=== PATIENT | female | born 1995 | race Caucasian/White ===

== ENCOUNTER 2020-02-07 08:28 | Emergency (ER) | payer BC, OTHER ==
[~2020-02-07] VITALS: Ht 162.6 cm; Wt 81.8 kg
[2020-02-07 09:15] LABS: BILIRUBIN,URINE NEGATIVE (NEGATIVE); CLARITY,URINE CLEAR; COLOR,URINE YELLOW; GLUCOSE, URINE (UA) NEGATIVE (NEGATIVE); KETONES,URINE NEGATIVE (NEGATIVE); LEUKOCYTE ESTERASE ,URINE TRACE (NEGATIVE); NITRITE,URINE NEGATIVE (NEGATIVE); PH,URINE 7.5 (5-9); PROTEIN,URINE NEGATIVE (NEGATIVE)
[2020-02-07 09:25] LABS: BACTERIA,URINE NEGATIVE /HPF; SQUAMOUS EPITHELIAL CELL,UR 0-2 /HPF; WBC,URINE 0-2 /HPF
--- NOTE | 2020-02-07 09:49 | ED GI ---
General Chief Complaint: OB < 20 WEEKS Stated Complaint: VAG BLEEDING,HEMORRHOIDS,8 WEEKS PREG Nursing Triage Note: Pt ambulates to room #6 with c/o vaginal bleeding et rectal bleeding. Pt reports to be approx 8wks (LMP 12/12/19). Reports hx hemorrhoids. Pt reports recent constipation, straining to pass BM's, et "bright red bleeding" after passing bowel movements. LBM 02/07/20. Pt reports upon rise on this day, pt experience x1 episode of approx qauter sized bright red vaginal bleeding. Pt denies vaginal bleeding at this time. Pt reports she was advised by OB Dr. Nguyen to seek evaluation in this ER. A&OX4. Sepsis Screen: No Definite Risk Source of Information: Patient Exam Limitations: No Limitations History of Present Illness Date Seen by Provider: Feb 07, 2020 Time Seen by Provider: 09:20 Initial Comments The patient presents to ER by private conveyance from work with chief complaint of spotting in her underwear. For the past 3-4 days she's had some bleeding from irritated hemorrhoid. She has a history of hemorrhoids and when she started vitamins is made her constipated. She's been using Colace and had a bowel movement today. She's used having a little blood on wiping but when she saw blood in her underwear and she is having some bilateral low pelvic mild cramping she was concerned she came to the ER. She supposed follow with Dr. UNGER and has her first appointment in about 1-2 weeks. She's not had an ultrasound. She is not having any discharge dysuria or dyspareunia. Her last vaginal intercourse was Tuesday, 5 days ago. She has a last missed her period of December 11 putting her at 8 weeks 1 day and she is a G1. Allergies and Home Medications Patient Home Medication List Home Medication List Reviewed: Yes Review of Systems Review of Systems Constitutional: No chills, No fever EENTM: No Blurred Vision, No Double Vision Respiratory: Denies Cough, Denies Shortness of Air Cardiovascular: Denies Chest Pain, Denies Edema Gastrointestinal: See HPI; Denies Abdomen Distended; Abdominal Pain, Constipated; Denies Diarrhea, Denies Nausea Genitourinary: Denies Burning, Denies Discharge Musculoskeletal: No back pain, No gout Skin: No pruritus, No rash Psychiatric/Neurological: Denies Headache, Denies Numbness All Other Systems Reviewed Negative Unless Noted: Yes Past Stlkliq-Herjba-Blorph Hx Patient Social History Alcohol Use: Denies Use Recreational Drug Use: No Smoking Status: Never a Smoker Recent Foreign Travel: No Contact w/Someone Who Travel: No Recent Infectious Disease Expo: No Physical Exam Vital Signs Vital Signs - First Documented 02/07/20 08:55 Temp 37.0 Pulse 89 Resp 18 B/P (MAP) 113/97 (102) Pulse Ox 98 O2 Delivery Room Air Capillary Refill : Less Than 3 Seconds Height/Weight/BMI Height: '" Weight: lbs. oz. kg; 30.00 BMI Method: General Appearance: WD/WN, no apparent distress HEENT: PERRL/EOMI, pharynx normal Neck: full range of motion, normal inspection Respiratory: no respiratory distress, no accessory muscle use Cardiovascular: normal peripheral pulses, regular rate, rhythm Gastrointestinal: normal bowel sounds, non tender, soft Genital/Rectal: normal genital exam, normal vaginal exam (speculum exam with normal-appearing nulliparous cervix without any lacerations, abrasions, discharge or blood in the vaginal vault), other (External rectal exam demonstrates to mildly inflamed hemorrhoids at 5:00 and 6:00 position with the anterior being noon. No large fissure, bleeding. Mildly tender to palpation.) Extremities: normal range of motion, non-tender, normal inspection, normal capillary refill Neurologic/Psychiatric: alert, normal mood/affect, oriented x 3 Progress/Results/Core Measures Results/Orders Lab Results Laboratory Tests Test 02/07/20 08:05 Range/Units Urine Color YELLOW Urine Clarity CLEAR Urine pH 7.5 5-9 Urine Specific [place] <=1.005 1.016-1.022 Urine Protein NEGATIVE NEGATIVE Urine Glucose (UA) NEGATIVE NEGATIVE Urine Ketones NEGATIVE NEGATIVE Urine Nitrite NEGATIVE NEGATIVE Urine Bilirubin NEGATIVE NEGATIVE Urine Urobilinogen 0.2 < = 1.0 MG/DL Urine Leukocyte Esterase TRACE H NEGATIVE Urine RBC (Auto) NEGATIVE NEGATIVE Urine RBC NONE /HPF Urine WBC 0-2 /HPF Urine Squamous Epithelial Cells 0-2 /HPF Urine Crystals NONE /LPF Urine Bacteria NEGATIVE /HPF Urine Casts NONE /LPF Urine Mucus NEGATIVE /LPF Urine Culture Indicated NO My Orders Orders - BRAULIO HA Ua Culture If Indicated (02/07/20 08:47) Urine Bedside (02/07/20 08:47) Hcg,Quantitative (02/07/20 09:43) Vital Signs/I&O 02/07/20 08:55 Temp 37.0 Pulse 89 Resp 18 B/P (MAP) 113/97 (102) Pulse Ox 98 O2 Delivery Room Air Blood Pressure Mean: 102 Progress Progress Note : Time: 09:49 Progress Note Suspect the bleeding is from an hemorrhoids number put her on pramoxine, sits baths, stool softeners and keep her follow-up with Dr. UNGER. Urinalysis unremarkable. Quantitative hCG will be drawn but she does not need to wait for the result. Consults : Consulting Physician: MIRELLA UNGER DO Consults Notes Discussed the case with Dr. UNGER and he agrees with course of care. Departure Impression Primary Impression: Hemorrhoids during in first trimester Disposition: 01 HOME, SELF-CARE Condition: Stable Departure-Patient Inst. Decision time for Depature: 09:44 Referrals: MIRELLA UNGER DO Patient Instructions: Hemorrhoids (DC), How to Do a Sitz Bath Add. Discharge Instructions: Pramoxine foam 1 g every 4 hours as necessary for pain or itching. Sitz baths as necessary for pain. You may continue to take the vitamins as long as you keep your stool soft. Colace 100-200 mg daily MiraLAX 1 capful in a glass of water once or twice a day if you have constipation. Suppositories as necessary. All discharge instructions reviewed with patient and/or family. Voiced understanding. Scripts Pramoxine HCl (Pramoxine HCl) 15 Gm Foam 1 GM TP Q4H PRN for HEMMORRHOID DISCOMFORT, #1 EA 0 Refills Prov: BRAULIO HA 02/07/20 Work/School Note: Work Release Form Date Seen in the Emergency Department: Feb 07, 2020 Return to Work: Feb 07, 2020 Restrictions: No Restrictions BRAULIO HA Feb 07, 2020 09:49
[2020-02-07] MEDS ORDERED: PRAM15FO4 TP (09:52)
[2020-02-07 10:05] VITALS: BP 113/97
== END 2020-02-07 10:05 | disposition home or self-care (01) ==
LOC: ER 08:31
DX: O22.41 Hemorrhoids in pregnancy, first trimester (principal); Z3A.08 8 weeks gestation of pregnancy
CPT/HCPCS: 36415; 81000; 84702; 84703

== ENCOUNTER → 2020-04-22 | Outpatient (CLI) | payer BC ==
[~2020-04-22] MED LIST: PRAM15FO4 TP
--- NOTE | 2020-04-22 12:21 | Diagnostic Imaging Report ---
INDICATION: survey. TECHNIQUE: Multiple real-time grayscale images were obtained over the gravid uterus. COMPARISON: None. FINDINGS: Ferguson viable IUP is in cephalic position. The placenta is posterior. There is no abruption or previa. There is a normal volume of amniotic fluid. Placenta is posterior with the cervical length measuring 3.8 cm. No abruption or previa. There was a normal anatomical survey. IMPRESSION: Ferguson viable IUP with normal survey. No pathological finding identified. Biometrical measurements are as follows: Biparietal 4.33 cm, age 19 weeks 1 days. Head circumference 15.87 cm, age 18 weeks 6 days. Abdominal circumference 13.39 cm, age 19 weeks 0 days. Femur length 2.78 cm, age 18 weeks 4 days. Sonographic estimate age: 19 weeks 0 days. Sonographic estimated date of delivery: 09/16/2020. Estimated Weight: 254 gm (+/- 37 gm). LMP percentile: 54%. heart rate: 136 beats per minute. number: 1 of 1. Dictated by: Dictated on workstation # [id number]
== END ==
LOC: RAD 11:00
PROVIDERS: ATTEND Nurse Practitioner Women's Health
DX: Z34.00 Encounter for supervision of normal first pregnancy, unspecified trimester (principal); Z3A.00 Weeks of gestation of pregnancy not specified
CPT/HCPCS: 76805

== ENCOUNTER 2020-09-13 19:39 | Inpatient (IN) | payer BC ==
[2020-09-13] VITALS (19 sets, daily range): BP systolic 125–172; BP diastolic 76–101
[~2020-09-13] VITALS: Ht 162.6 cm; Wt 106.2 kg
[2020-09-13] MEDS ORDERED: PREN-51 PO (19:46)
[2020-09-13] MEDS ORDERED: FERR-84 PO (19:47)
[2020-09-13 20:09] LABS: BILIRUBIN,URINE NEGATIVE (NEGATIVE); CLARITY,URINE SL CLOUDY; COLOR,URINE ORANGE; GLUCOSE, URINE (UA) NEGATIVE (NEGATIVE); KETONES,URINE NEGATIVE (NEGATIVE); LEUKOCYTE ESTERASE ,URINE 1+ (NEGATIVE); NITRITE,URINE NEGATIVE (NEGATIVE); PH,URINE 6.5 (5-9); PROTEIN,URINE 2+ (NEGATIVE)
[2020-09-13] MEDS ORDERED: D5 LR IV SOLUTION 1,000 ML IV ONE (20:40)
[2020-09-13 20:45] LABS: BACTERIA,URINE TRACE /HPF; RBC,URINE TNTC /HPF; WBC,URINE 25-50 /HPF
[2020-09-13] MEDS ORDERED: MINERAL OIL CONCENTRATE 99.9% 15 ML UDC TOP PRN (20:45)
[2020-09-13] MEDS: D5 LR IV SOLUTION 1,000 ML IV SCH (21:10)
[2020-09-13 21:19] LABS: BASOPHILS % (AUTO) 0 % (0-10); EOSINOPHILS # (AUTO) 0.1 10^3/uL (0.0-0.3); EOSINOPHILS % (AUTO) 1 % (0-10); HEMATOCRIT 38 % (35-52); HEMOGLOBIN 12.7 g/dL (11.5-16.0); LYMPHOCYTES # (AUTO) 2.3 10^3/uL (1.0-4.0); LYMPHOCYTES % (AUTO) 20 % (12-44); MEAN CORPUSCULAR HEMOGLOBIN 31 pg (25-34); MEAN CORPUSCULAR HGB CONC 34 g/dL (32-36); MEAN CORPUSCULAR VOLUME 92 fL (80-99); MEAN PLATELET VOLUME 11.9 fL (9.0-12.2); MONOCYTES # (AUTO) 0.9 10^3/uL (0.0-1.0); MONOCYTES % (AUTO) 7 % (0-12); NEUTROPHILS # (AUTO) 8.3 10^3/uL (1.8-7.8); NEUTROPHILS % (AUTO) 72 % (42-75); PLATELET COUNT 193 10^3/uL (130-400); WHITE BLOOD COUNT 11.6 10^3/uL (4.3-11.0)
[2020-09-13 22:01] LABS: ALBUMIN 3.5 GM/DL (3.2-4.5); CHLORIDE 107 MMOL/L (98-107); POTASSIUM 3.7 MMOL/L (3.6-5.0); SODIUM 140 MMOL/L (135-145)
[2020-09-13 22:02] LABS: CALCIUM 9.1 MG/DL (8.5-10.1)
[2020-09-13 22:04] LABS: GLUCOSE 112 MG/DL (70-105); TOTAL PROTEIN 6.6 GM/DL (6.4-8.2)
[2020-09-13 22:05] LABS: BILIRUBIN,TOTAL 0.1 MG/DL (0.1-1.0); CARBON DIOXIDE 16 MMOL/L (21-32)
[2020-09-13 22:07] LABS: ALKALINE PHOSPHATASE 169 U/L (40-136); CREATININE SERUM 0.77 MG/DL (0.60-1.30); GFR ESTIMATED > 60
[2020-09-13 22:08] LABS: BUN/CREATININE RATIO 13
[2020-09-13 22:10] LABS: ALANINE AMINOTRANSFERASE 14 U/L (0-55); URIC ACID 7.4 MG/DL (2.6-7.2)
[2020-09-13] MEDS ORDERED: MAGNESIUM 4 GM/100 ML IVPB 100 ML IV ONE ×2 (23:00→23:02)
[2020-09-13] MEDS ORDERED: CALCIUM GLUC. 10% 4.65 MEQ/10 ML VIAL IV PRN (23:00)
[2020-09-13] MEDS ORDERED: MAGNESIUM SULFATE DRIP 500 ML IV ONE (23:03)
[2020-09-13] MEDS: MAGNESIUM SULFATE DRIP 500 ML IV SCH (23:42)
[2020-09-14] VITALS (69 sets, daily range): BP systolic 114–175; BP diastolic 64–133
[2020-09-14] MEDS ORDERED: ONDANSETRON 4 MG/2 ML (SDV) Z0FRAN IVP ONE
[2020-09-14] MEDS ORDERED: OXYTOCIN PRE-MIX DRIP 500 ML IV ONE (05:43)
[2020-09-14] MEDS ORDERED: OXYTOCIN PRE-MIX DRIP 500 ML IV SCH (06:00)
[2020-09-14] MEDS ORDERED: fentaNYL 2 mcg/ml BUPIVA 0.125 100 ML ONE (06:06)
--- NOTE | 2020-09-14 06:32 | History & Physical ---
History and Physical Date Seen by Provider: Sep 14, 2020 Time Seen by Provider: 06:25 . This patient is a 25-year-old female patient of Dr. Ruggiero for whom I am covering the patient is at 39 weeks gestation and presented with complaint of rupture membranes. She was grossly ruptured which was confirmed by nitrazine. She is vanita somewhat irregularly. And making slow cervical change. Blood pressures were persistently elevated lab work was obtained and that was consistent with preeclampsia suspicious for developing HELLP syndrome with an elevated lactate dehydrogenase. Blood pressures have been as high as 170s over 100. Patient was started on IV magnesium for seizure prophylaxis. Patient's GBS culture was reportedly negative Initial plan was for observation for spontaneous labor. Patient did demonstrate some cervical change with spontaneous contract and reached the point where she was uncomfortable enough to request an epidural. Patient is allowed the epidural and decision made to proceed with Pitocin augmentation of labor. Allergies are none Medications are vitamins Medical social and surgical history is all per the antepartum record HEENT exam is normal Neck is supple no lymphadenopathy no thyromegaly Abdomen is gravid soft nontender nondistended Extremities show no clubbing or cyanosis. There is no Homans' sign. Pelvic exam as per the nurse report Vital Signs Date Time Temp Pulse Resp B/P (MAP) Pulse Ox O2 Delivery O2 Flow Rate FiO2 09/14/20 02:38 75 18 137/79 (98) 99 Room Air 09/14/20 02:27 36.2 78 18 164/87 (112) 100 Room Air 09/14/20 01:24 86 18 150/82 (104) 100 Room Air 09/14/20 01:05 85 18 145/95 (112) 99 Room Air 09/14/20 00:55 89 18 158/95 (116) 99 Room Air 09/14/20 00:35 85 18 168/94 (118) 98 Room Air 09/14/20 00:20 83 18 146/96 (113) 98 Room Air 09/14/20 00:05 36.7 96 18 145/97 (113) 97 Room Air 09/13/20 23:50 95 18 142/92 (109) 100 Room Air 09/13/20 23:45 93 18 154/93 (113) 99 Room Air 09/13/20 23:40 96 18 144/86 (105) 98 Room Air 09/13/20 23:35 88 18 141/86 (104) 98 Room Air 09/13/20 23:30 84 18 142/85 (104) 99 Room Air 09/13/20 23:25 86 18 147/85 (105) 99 Room Air 09/13/20 23:20 65 18 161/88 (112) 100 Room Air 09/13/20 23:10 35.2 69 18 158/88 (111) 100 Room Air 09/13/20 22:30 64 18 143/80 (101) 98 Room Air 09/13/20 22:00 73 18 135/79 (97) 98 Room Air 09/13/20 21:40 36.0 77 18 146/97 (113) 98 Room Air 09/13/20 21:25 97 18 125/76 (92) 98 Room Air 09/13/20 21:20 36.2 102 18 138/97 (111) 98 Room Air 09/13/20 21:10 102 18 138/97 (111) 98 Room Air 09/13/20 20:55 108 18 172/93 (119) 98 Room Air 09/13/20 20:40 109 18 151/99 (116) 98 Room Air 09/13/20 20:25 109 18 139/101 (114) Room Air 09/13/20 20:10 110 18 137/97 (110) Room Air 09/13/20 19:50 36.7 121 18 98 Room Air 09/13/20 19:50 36.2 121 18 153/98 (116) 97 Room Air I & O 09/14/20 07:00 Intake Total 100 ml Balance 100 ml Vital signs are as noted above and review of the monitor with automatic blood pressure recording blood pressures have intermittently been in the 160s and 170s over 100. Generally and persistently blood pressures have been less than 160 systolic and less than 110 diastolic Assessment and plan 39+ week gestation with spontaneous rupture membranes and with preeclampsia and appears to be developing HELLP syndrome. Patient is on magnesium for seizure prophylaxis and is now being allowed an epidural and we will augment with Pitocin and anticipate a vaginal delivery. Dr. Ruggiero is aware of the pain and plan is for him to assume care after 7 AM today. 39-week gestation with spontaneous rupture membrane/PROM and with severe preeclampsia Allergies and Home Medications Allergies Coded Allergies: No Known Drug Allergies (Unverified , 02/07/20) Patient Home Medication List Home Medication List Reviewed: Yes DIRK GUILLEN MD Sep 14, 2020 06:32
[2020-09-14] MEDS ORDERED: METOCLOPRAMIDE INJ 10 MG/2 ML (REGLAN) IV PRN (07:15)
[2020-09-14] MEDS ORDERED: ONDANSETRON 4 MG/2 ML (SDV) Z0FRAN IV PRN (07:15)
[2020-09-14] MEDS ORDERED: NALOXONE 0.4 MG/ML 1 ML (NARCAN) VIAL IV PRN ×2 (07:15)
[2020-09-14] MEDS ORDERED: LACTATED RINGERS 1,000 ML IV SCH (07:15)
[2020-09-14] MEDS ORDERED: EPIDURAL (fentaNYL 2 MCG/ML BUPIVA 0.125%)100 ML BAG EPI SCH (07:15)
[2020-09-14] MEDS ORDERED: diphenhydrAMINE 50 MG/ML INJ (BENADRYL) IV PRN (07:15)
[2020-09-14] MEDS: MAGNESIUM SULFATE DRIP 500 ML IV SCH ×2 (10:03→20:05)
[2020-09-14] MEDS: D5 LR IV SOLUTION 1,000 ML IV SCH ×2 (10:15→22:09)
[2020-09-14] MEDS ORDERED: LIDOCAINE/EPI 2% 1:200,00 (XYLOCAINE) 20 ML VIAL ONE (12:52)
[2020-09-14] MEDS: OXYTOCIN PRE-MIX DRIP 500 ML IV SCH ×3 (14:19→17:51)
--- NOTE | 2020-09-14 14:31 | OB Labor & Delivery Record ---
L&D History History Expected Date of Delivery: Sep 19, 2020 Gestational Age in Weeks: 39 L&D Stage1 Stage One Onset of Labor - Date: Sep 14, 2020 Monitors and Tracing Monitor Mode: External Heart Rate: 120 Monitor Accelerations: Uniform Monitor Decelerations: None Station: -1 Medical Housekeeper Variability: Average (6-10) Short Term Variability: Present Vital Signs VS - Last 72 Hours, by Label 09/13/20 09/13/20 09/13/20 09/13/20 19:50 19:50 20:10 20:25 Temp 36.2 36.7 Pulse 121 121 110 109 Resp 18 18 18 18 B/P (MAP) 153/98 (116) 137/97 (110) 139/101 (114) Pulse Ox 97 98 O2 Delivery Room Air Room Air Room Air Room Air 09/13/20 09/13/20 09/13/20 09/13/20 20:40 20:55 21:10 21:20 Temp 36.2 Pulse 109 108 102 102 Resp 18 18 18 18 B/P (MAP) 151/99 (116) 172/93 (119) 138/97 (111) 138/97 (111) Pulse Ox 98 98 98 98 O2 Delivery Room Air Room Air Room Air Room Air 09/13/20 09/13/20 09/13/20 09/13/20 21:25 21:40 22:00 22:30 Temp 36.0 Pulse 97 77 73 64 Resp 18 18 18 18 B/P (MAP) 125/76 (92) 146/97 (113) 135/79 (97) 143/80 (101) Pulse Ox 98 98 98 98 O2 Delivery Room Air Room Air Room Air Room Air 09/13/20 09/13/20 09/13/20 09/13/20 23:10 23:20 23:25 23:30 Temp 35.2 Pulse 69 65 86 84 Resp 18 18 18 18 B/P (MAP) 158/88 (111) 161/88 (112) 147/85 (105) 142/85 (104) Pulse Ox 100 100 99 99 O2 Delivery Room Air Room Air Room Air Room Air 09/13/20 09/13/20 09/13/20 09/13/20 23:35 23:40 23:45 23:50 Pulse 88 96 93 95 Resp 18 18 18 18 B/P (MAP) 141/86 (104) 144/86 (105) 154/93 (113) 142/92 (109) Pulse Ox 98 98 99 100 O2 Delivery Room Air Room Air Room Air Room Air 09/14/20 09/14/20 09/14/20 09/14/20 00:05 00:20 00:35 00:55 Temp 36.7 Pulse 96 83 85 89 Resp 18 18 18 18 B/P (MAP) 145/97 (113) 146/96 (113) 168/94 (118) 158/95 (116) Pulse Ox 97 98 98 99 O2 Delivery Room Air Room Air Room Air Room Air 09/14/20 09/14/20 09/14/20 09/14/20 01:05 01:24 02:27 02:38 Temp 36.2 Pulse 85 86 78 75 Resp 18 18 18 18 B/P (MAP) 145/95 (112) 150/82 (104) 164/87 (112) 137/79 (98) Pulse Ox 99 100 100 99 O2 Delivery Room Air Room Air Room Air Room Air 09/14/20 09/14/20 09/14/20 09/14/20 03:20 04:20 05:20 06:00 Temp 36.2 Pulse 75 83 84 89 Resp 18 B/P (MAP) 145/86 (105) 156/95 (115) 135/90 (105) 163/92 (115) Pulse Ox 100 100 99 100 O2 Delivery Room Air Room Air Room Air Room Air 09/14/20 09/14/20 09/14/20 09/14/20 06:15 06:30 06:45 06:55 Temp 35.5 Pulse 89 91 92 100 Resp 18 18 18 18 B/P (MAP) 158/98 (118) 157/95 (115) 150/93 (112) 175/112 (133) Pulse Ox 100 100 100 99 O2 Delivery Room Air Room Air Room Air Room Air 09/14/20 09/14/20 09/14/20 09/14/20 07:00 07:15 07:22 07:30 Temp 36.9 Pulse 90 102 96 90 Resp 18 18 18 18 B/P (MAP) 147/102 (117) 139/80 (99) 117/69 (85) 148/74 (98) Pulse Ox 100 100 100 96 O2 Delivery Room Air Room Air Room Air Room Air 09/14/20 09/14/20 09/14/20 09/14/20 07:32 07:35 07:38 07:40 Pulse 82 82 92 91 Resp 18 18 18 18 B/P (MAP) 133/82 (99) 114/70 (85) 127/75 (92) 128/64 (85) Pulse Ox 96 99 99 100 O2 Delivery Room Air Room Air Room Air Room Air 09/14/20 09/14/20 09/14/20 09/14/20 07:43 07:46 07:50 07:53 Pulse 89 79 82 87 Resp 18 18 18 18 B/P (MAP) 135/76 (95) 139/84 (102) 135/80 (98) 135/83 (100) Pulse Ox 99 99 99 99 O2 Delivery Room Air Room Air Room Air Room Air 09/14/20 09/14/20 09/14/20 09/14/20 07:56 07:59 08:02 08:15 Pulse 85 88 95 84 Resp 18 18 18 18 B/P (MAP) 136/80 (98) 140/81 (100) 135/87 (103) 122/69 (86) Pulse Ox 98 98 98 99 O2 Delivery Room Air Room Air Room Air Room Air 09/14/20 09/14/20 09/14/20 09/14/20 08:30 08:45 09:00 09:15 Pulse 88 86 98 86 Resp 18 18 18 18 B/P (MAP) 118/68 (85) 121/69 (86) 126/76 (93) 129/76 (93) Pulse Ox 99 100 100 100 O2 Delivery Room Air Room Air Room Air Room Air 09/14/20 09/14/20 09/14/20 09/14/20 09:30 09:45 10:00 10:15 Temp 36.1 Pulse 82 82 88 89 Resp 18 18 18 18 B/P (MAP) 134/77 (96) 135/81 (99) 134/82 (99) 136/79 (98) Pulse Ox 99 100 100 100 O2 Delivery Room Air Room Air Room Air Room Air 09/14/20 09/14/20 09/14/20 10:30 10:45 11:00 Pulse 85 89 82 Resp 18 18 18 B/P (MAP) 141/85 (103) 143/89 (107) 145/94 (111) Pulse Ox 94 100 100 O2 Delivery Room Air Room Air Room Air Rupture of Membranes Spontaneous Ruture of Membrane: Yes Amniotic Membrane Rupture Time: 1900 Amniotic Membrane Fluid Desc.: Clear Vaginal Bleeding Description: Normal Show Induction/Anesthesia Epidural Cath Placement - Time: 07 Progress/Notes Patient admitted by my partner Dr. Mendoza last night in early labor and diagnosed with Severe PreE. Started on MgSO4. She was augmented with pitocin when I took over care this AM, she received an epidural and progressed to complete and +1 station. Max dose of 8mu pitocin reached. L&D Stage2 Stage Two Stage II Date: Sep 14, 2020 Monitors and Tracing Monitor Mode: External Heart Rate: 120 Monitor Decelerations: Variable Senior Living Variability: Average (6-10) Position: Right Occiput Anterior Presentation: Vertex Cord Descript/Complications Cord Vessel Description: 3 Vessels Delivery Type Delivery Method: Spontaneous Vaginal Anterior Shoulder: Left Episiotomy/Perineal Laceration Laceraction(s)/Extensions: Yes Episiotomy Description: Right Mediolateral Degree (describe repair) RML repaired using 3-0 and 2-0 vicyrl suture Condition of Infant Delivery 1 minute Comment: 8 5 minute Comment: 9 Notes Live male infant weight 7lbs 7oz Condition of Condition of : Living Exam: No Observed Abnormalities Resuscitation Resuscitation: N/A - Spontaneous Resp L&D Stage3 Stage Three Stage III Date: Sep 14, 2020 Pictocin Pitocin Administration mu/min: 8 Pitocin ml/hr: 8 Pitocin Administration Comment: 30 mu wide open at delivery of placenta Placenta Delivery Placenta Delivery: Spontaneous Delivery Summary Summary Estimated blood loss (mL): 350 Attending at delivery: Mirella Unger DO Condition of Delivery Examined: Cervix Examined, Uterus Explored Post Hemorrhage: No Condition of Mother stable Condition of (s) stable MIRELLA UNGER DO Sep 14, 2020 14:31
[2020-09-14] MEDS ORDERED: MEASLES,MUMPS,RUBELLA 1 EA INJ SQ ONE (14:45)
[2020-09-14] MEDS ORDERED: DIBUCAINE 1% OINTMENT 30 GM TUBE TOP PRN (14:45)
[2020-09-14] MEDS ORDERED: TETANUS,DIPTH,PERTUSS P/F (BOOSTRIX) 0.5 ML VIAL IM ONE (14:45)
[2020-09-14] MEDS ORDERED: HYDROcodone/APAP 5 MG/325 MG (LORTAB) TAB PO PRN (14:45)
[2020-09-14] MEDS: IBUPROFEN 600 MG (MOTRIN) TAB PO SCH ×2 (16:19→22:02)
[2020-09-14] MEDS: WITCH HAZEL(TUCKS) 40 EA JAR TOP PRN (16:54)
[2020-09-14] MEDS: BENZOCAINE/MENTHOL (DERMOPLAST) 56 ML CAN TP PRN (16:55)
[2020-09-14] MEDS: DOCUSATE SODIUM 100 MG (COLACE) CAP PO SCH (20:06)
[2020-09-14] MEDS ORDERED: LABETALOL 200 MG (NORMODYNE) TAB PO ONE (21:15)
[2020-09-14] MEDS ORDERED: CATHETER FLUSH 10 ML SYR IV SCH (22:00)
[2020-09-15] VITALS (8 sets, daily range): BP systolic 109–137; BP diastolic 71–95
[2020-09-15] MEDS: IBUPROFEN 600 MG (MOTRIN) TAB PO SCH ×3 (03:02→17:05)
[2020-09-15] MEDS ORDERED: amLODIPine 2.5MG (NORVASC) TAB PO ONE (03:15)
[2020-09-15 05:44] LABS: BASOPHILS % (AUTO) 0 % (0-10); EOSINOPHILS # (AUTO) 0.1 10^3/uL (0.0-0.3); EOSINOPHILS % (AUTO) 1 % (0-10); HEMATOCRIT 31 % (35-52); LYMPHOCYTES # (AUTO) 2.3 10^3/uL (1.0-4.0); LYMPHOCYTES % (AUTO) 20 % (12-44); MEAN CORPUSCULAR HEMOGLOBIN 31 pg (25-34); MEAN CORPUSCULAR HGB CONC 32 g/dL (32-36); MEAN CORPUSCULAR VOLUME 95 fL (80-99); MEAN PLATELET VOLUME 11.7 fL (9.0-12.2); MONOCYTES # (AUTO) 0.8 10^3/uL (0.0-1.0); MONOCYTES % (AUTO) 7 % (0-12); NEUTROPHILS # (AUTO) 8.2 10^3/uL (1.8-7.8); NEUTROPHILS % (AUTO) 72 % (42-75); PLATELET COUNT 142 10^3/uL (130-400); WHITE BLOOD COUNT 11.4 10^3/uL (4.3-11.0)
[2020-09-15] MEDS ORDERED: amLODIPine 2.5MG (NORVASC) TAB ONE (06:27)
[2020-09-15] MEDS ORDERED: amLODIPine 5 MG (NORVASC) TAB ONE (06:27)
--- NOTE | 2020-09-15 07:02 | Postpartum Progress Note ---
SANJANA NICHOLAS MED STUDENT 09/15/20 0702: Note Note Day # 1 Subjective: Patient is without complaints. Not ambulating yet, receiving MgSO4 for seizure prophylaxis. Ramon in place draining clear yellow urine. Tolerating a regular diet without nausea or vomiting. Normal lochia; passing some clots. Pain is well controlled with oral pain medications. Objective: Physical Exam: General - Alert and oriented, no apparent distress Abdomen - Soft, appropriately tender to palpation, non-distended, fundus firm at umbilicus Extremities - mild edema BLE, negative Bennett's bilaterally Assessment: PPD 1, s/p vaginal delivery complicated by preeclampsia with severe features Recovering well, hemodynamically stable Seizure risk Plan: Routine care. Encourage breast feeding. Encourage ambulation when appropriate Ferrous sulfate supplementation. Continue MgSO4 until 24hr Fall precautions r/t ramon, MgSO4 Plan for discharge today Vitals - Labs Vital Signs - I&O Vital Signs Date Time Temp Pulse Resp B/P (MAP) Pulse Ox O2 Delivery O2 Flow Rate FiO2 09/15/20 03:00 36.5 84 18 124/77 (93) 98 Room Air 09/15/20 02:00 36.4 101 18 135/87 (103) 98 Room Air 09/15/20 01:00 36.2 89 18 130/87 (101) 98 Room Air 09/15/20 00:00 81 18 109/71 (84) 98 Room Air 09/14/20 23:00 36.3 81 18 119/72 (88) 98 Room Air 09/14/20 22:00 36.2 90 18 149/99 (116) 99 Room Air 09/14/20 21:06 86 18 141/90 (107) 98 Room Air 09/14/20 20:00 36.4 87 18 141/91 (108) 99 Room Air 09/14/20 19:00 108 18 129/76 (93) Room Air 09/14/20 18:00 105 18 144/94 (111) Room Air 09/14/20 17:15 36.4 100 18 149/92 (111) 99 Room Air 09/14/20 16:16 99 18 144/90 (108) Room Air 09/14/20 16:01 97 18 145/69 (94) Room Air 09/14/20 15:46 99 18 153/80 (104) Room Air 09/14/20 15:31 110 18 140/91 (107) Room Air 09/14/20 15:16 113 18 152/86 (108) Room Air 09/14/20 15:01 120 18 151/88 (109) Room Air 09/14/20 14:46 141 18 147/88 (107) Room Air 09/14/20 14:31 115 18 168/72 (104) Room Air 09/14/20 14:16 107 18 148/74 (98) Room Air 09/14/20 14:00 166 18 166/133 (144) Room Air 09/14/20 13:30 142 18 150/67 (94) Room Air 09/14/20 13:15 95 18 138/86 (103) Room Air 09/14/20 13:00 96 18 138/78 (98) 100 Room Air 09/14/20 12:30 97 18 136/96 (109) 100 Room Air 09/14/20 12:15 85 18 129/73 (91) 100 Room Air 09/14/20 12:00 91 18 128/83 (98) 100 Room Air 09/14/20 11:45 36.4 82 18 126/80 (95) 100 Room Air 09/14/20 11:30 81 18 147/84 (105) 100 Room Air 09/14/20 11:15 83 18 143/86 (105) 100 Room Air 09/14/20 11:00 82 18 145/94 (111) 100 Room Air 09/14/20 10:45 89 18 143/89 (107) 100 Room Air 09/14/20 10:30 85 18 141/85 (103) 94 Room Air 09/14/20 10:15 36.1 89 18 136/79 (98) 100 Room Air 09/14/20 10:00 88 18 134/82 (99) 100 Room Air 09/14/20 09:45 82 18 135/81 (99) 100 Room Air 09/14/20 09:30 82 18 134/77 (96) 99 Room Air 09/14/20 09:15 86 18 129/76 (93) 100 Room Air 09/14/20 09:00 98 18 126/76 (93) 100 Room Air 09/14/20 08:45 86 18 121/69 (86) 100 Room Air 09/14/20 08:30 88 18 118/68 (85) 99 Room Air 09/14/20 08:15 84 18 122/69 (86) 99 Room Air 09/14/20 08:02 95 18 135/87 (103) 98 Room Air 09/14/20 07:59 88 18 140/81 (100) 98 Room Air 09/14/20 07:56 85 18 136/80 (98) 98 Room Air 09/14/20 07:53 87 18 135/83 (100) 99 Room Air 09/14/20 07:50 82 18 135/80 (98) 99 Room Air 09/14/20 07:46 79 18 139/84 (102) 99 Room Air 09/14/20 07:43 89 18 135/76 (95) 99 Room Air 09/14/20 07:40 91 18 128/64 (85) 100 Room Air 09/14/20 07:38 92 18 127/75 (92) 99 Room Air 09/14/20 07:35 82 18 114/70 (85) 99 Room Air 09/14/20 07:32 82 18 133/82 (99) 96 Room Air 09/14/20 07:30 90 18 148/74 (98) 96 Room Air 09/14/20 07:22 96 18 117/69 (85) 100 Room Air 09/14/20 07:15 36.9 102 18 139/80 (99) 100 Room Air 09/14/20 07:00 90 18 147/102 (117) 100 Room Air I & O 09/15/20 07:00 Intake Total 5372 ml Output Total 5450 ml Balance -78 ml Labs Laboratory Tests 09/15/20 05:16: White Blood Count 11.4H, Red Blood Count 3.27L, Hemoglobin 10.0#L, Hematocrit 31L, Mean Corpuscular Volume 95, Mean Corpuscular Hemoglobin 31, Mean C orpuscular Hemoglobin Concent 32, Red Cell Distribution Width 13.1, Platelet Count 142, Mean Platelet Volume 11.7, Immature Granulocyte % (Auto) 0, Neutrophils (%) (Auto) 72, Lymphocytes (%) (Auto) 20, Monocytes (%) (Auto) 7, Eosinophils (%) (Auto) 1, Basophils (%) (Auto) 0, Neutrophils # (Auto) 8.2H, Lymphocytes # (Auto) 2.3, Monocytes # (Auto) 0.8, Eosinophils # (Auto) 0.1, Basophils # (Auto) 0.0, Immature Granulocyte # (Auto) 0.1 MIRELLA RUGGIERO DO 09/15/20 0713: Note Note Verification and Attestation of Medical Student E/M Service PPD 1 NVD Acute blood loss anemia Severe Preeclampsia- patient stable, s/p MgSO4 infusion 12 hrs pp Peripartum HTN P: Starting on Norvasc 2.5 mg daily today Routine care, will follow for neurosymptoms and BP elevations. A medical student performed and documented this service in my presence. I reviewed and verified all information documented by the medical student and made modifications to such information, when appropriate. I personally performed the physical exam and medical decision making. Mirella Ruggiero, Sep 15, 2020,07:11 SANJANA NICHOLAS MED STUDENT Sep 15, 2020 07:02 MIRELLA RUGGIERO DO Sep 15, 2020 07:13
--- NOTE | 2020-09-15 09:49 | Anesthesia-Regional Post-Op ---
Regional Patient Condition Mental Status: Alert, Oriented x3 Circulation: Same as Pre-Op Headache: Absent Sensation: Full Recovery Motor Block: Absent Post Op Complications Complications None Follow Up Care/Instructions Patient Instructions None needed. Anesthesia/Patient Condition Patient is doing well, no complaints, stable vital signs, no apparent adverse anesthesia problems. No complications reported per nursing. LORI RUIZ CRNA Sep 15, 2020 09:49
[2020-09-15] MEDS: FERROUS SULF 325 MG (IRON) TAB PO SCH (10:03)
[2020-09-15] MEDS: DOCUSATE SODIUM 100 MG (COLACE) CAP PO SCH ×2 (10:03→20:29)
[2020-09-15] MEDS: PRENATAL VITAMIN 1 EA TAB PO SCH (10:14)
[2020-09-16 00:01] VITALS: BP 121/87
[2020-09-16 05:12] VITALS: BP 138/93
[2020-09-16] MEDS: IBUPROFEN 600 MG (MOTRIN) TAB PO SCH ×3 (05:12→13:19)
--- NOTE | 2020-09-16 12:24 | Discharge Inst-Women's Service ---
Discharge Inst-Women's Serv Depart Medication/Instructions New, Converted or Re-Newed RX: RX on Chart Final Diagnosis PPD 2 NVD, Acute blood loss anemia, PreE Problems Reviewed?: Yes Consults/Follow Up Additional Follow Up: Yes Orders/Referrals Dr. Unger in 6 weeks, and in one week for a BP check Activity Activity: Activity as Tolerated Driving Instructions: No Driving for 1 Week NO SMOKING: NO SMOKING Nothing Inside Vagina: No Douching, No Aldie, No Tampons Diet Discharge Diet: No Restrictions Symptoms to Report to : Bleeding Excessive, Pain Increased, Fever Over 101 Degrees F, Vaginal Bleeding Increase, Questions/Concerns For Any Problems or Questions: Contact Your Physician MIRELLA UNGER DO Sep 16, 2020 12:24
[2020-09-16] MEDS ORDERED: DCS100C PO (12:26)
[2020-09-16] MEDS ORDERED: BENZ78AE5 TP (12:26)
[2020-09-16] MEDS ORDERED: IBUP-844 PO (12:26)
[2020-09-16] MEDS ORDERED: ACHD5005 PO (12:26)
[2020-09-16] MEDS ORDERED: AMLO2.5T2 PO (12:27)
[2020-09-16] MEDS: FERROUS SULF 325 MG (IRON) TAB PO SCH (13:19)
[2020-09-16] MEDS: PRENATAL VITAMIN 1 EA TAB PO SCH (13:19)
[2020-09-16] MEDS: DOCUSATE SODIUM 100 MG (COLACE) CAP PO SCH (13:19)
[2020-09-16] MEDS: WITCH HAZEL(TUCKS) 40 EA JAR TOP PRN (13:19)
[2020-09-16] MEDS: BENZOCAINE/MENTHOL (DERMOPLAST) 56 ML CAN TP PRN (13:20)
[2020-09-16 13:48] VITALS: BP 131/79
== END 2020-09-16 14:40 | disposition home or self-care (01) | DRG 806 ==
LOC: WSo 19:39 → LDRP 19:39 → WSo 20:11 → LDRP 09-14 17:00
PROVIDERS: ADMIT Obstetrics & Gynecology; ATTEND Obstetrics & Gynecology
PROC: 10E0XZZ Delivery of Products of Conception, External Approach (ICD-10-PCS; principal; 2020-09-14)
PROC: 0W8NXZZ Division of Female Perineum, External Approach (ICD-10-PCS; 2020-09-14)
DX: O14.14 Severe pre-eclampsia complicating childbirth (principal); D62 Acute posthemorrhagic anemia; Z37.0 Single live birth; Z3A.39 39 weeks gestation of pregnancy; O90.81 Anemia of the puerperium; O16.5 Unspecified maternal hypertension, complicating the puerperium
CPT/HCPCS: 36415; 80053; 81000; 82570; 83615; 84156; 84550; 85025; 86850; 86900; 86901; 87088; 99212

== ENCOUNTER 2021-12-31 10:50 | Emergency (ER) | payer BC ==
[~2021-12-31] VITALS: Ht 162.6 cm; Wt 85.2 kg
[~2021-12-31 10:50] MED LIST changes: +ACHD5005 PO; +AMLO2.5T2 PO; +BENZ78AE5 TP; +DOCU-239 PO; +FERR-84 PO; +IBUP-844 PO; +PREN-51 PO
--- NOTE | 2021-12-31 11:29 | ED GU-Female ---
General Chief Complaint: Rect Problems Stated Complaint: HEMORRHOIDS Source: patient History of Present Illness Date Seen by Provider: Dec 31, 2021 Time Seen by Provider: 10:56 Initial Comments 26-year-old female presenting with complaints of sudden rectal pain. She is G2, P1 at approximately 15 weeks estimated gestational age. She states that she had urged her to have a bowel movement and did not feel like she was straining very hard but had a sudden popping sensation. Then she had severe pain and when she looked in the mirror she had a bright red object sticking out of her rectum. She does have a history of hemorrhoids even before her prior . She has not had something like this happen before. She was not having any bleeding. She denies having any vaginal bleeding or fluid draining. She has had no pain with urination. Timing/Duration: just prior to arrival Severity/Quality: severe, sharp Location: other (Rectal) Radiation: none Activities at Onset: other (Trying to defecate) Prior Genitourinary Problems: none Sexual [place] History: less than 2 months ago Modifying Factors: Worsens With Defecating, Worsens With Movement Associated Symptoms: No abdominal pain, No diaphoresis, No dysuria, No fever/chills, No loss of bladder control, No lower back pain, No lumps, No mass, No nausea/vomiting, No nocturia, No polyuria, No swelling, No syncope, No urinary frequency Allergies and Home Medications Allergies Coded Allergies: No Known Drug Allergies (Unverified , 02/07/20) Patient Home Medication List Home Medication List Reviewed: Yes Amlodipine Besylate (Norvasc) 2.5 Mg Tablet, 2.5 MG PO DAILY Prescribed by: MIRELLA UNGER on 09/16/20 1227 Benzocaine/Menthol (Dermoplast Pain Relieving [place]) 78 Gm Aerosol, 0 EA TP UD PRN for PAIN- SEE INSTRUCTIONS Prescribed by: MIRELLA UNGER on 09/16/20 1226 Docusate Sodium (Dok) 100 Mg Capsule, 100 MG PO BID PRN for CONSTIPATION-1ST LINE Prescribed by: MIRELLA UNGER on 09/16/20 1226 Ferrous Sulfate (Iron) 325 Mg Tablet, 325 MG PO, (Reported) Entered as Reported by: TAMIE HENSON on 09/13/201946 Hydrocodone Bit/Acetaminophen (HYDROcodone/APAP 5 MG/325 MG TAB) 1 Tab Tab, 1 EA PO Q4H PRN for PAIN-MODERATE (5-7) Prescribed by: MIRELLA UNGER on 09/16/20 1226 Ibuprofen (Ibu) 600 Mg Tablet, 600 MG PO Q6H Prescribed by: MIRELLA UNGER on 09/16/20 1226 Vit #76/Iron,Carb/FA (Prenatabs Rx Tablet) 1 Each Tablet, 1 EACH PO, (Reported) Entered as Reported by: TAMIE HENSON on 09/13/20 194 Review of Systems Review of Systems Constitutional: No chills, No fever EENTM: no symptoms reported Respiratory: no symptoms reported Cardiovascular: no symptoms reported Gastrointestinal: no symptoms reported Genitourinary: see HPI Musculoskeletal: no symptoms reported Skin: no symptoms reported Psychiatric/Neurological: No Symptoms Reported Past Yriatrf-Ajyupn-Gxkbqj Hx Patient Social History Tobacco Use?: No Smoking Status: Never a Smoker Smokeless Tobacco Frequency: Never a User Use of E-Cig and/or Vaping dev: No Use of E-Cig and/or Vaping Praneeth: Never a User Substance use?: No Alcohol Use?: No Pt feels they are or have been: No Seasonal Allergies Seasonal Allergies: No Past Medical History Surgery/Hospitalization HX: Hemorrhoids Surgeries: No Respiratory: No Cardiac: No Neurological: No Genitourinary: No Gastrointestinal: Yes Hemorrhoids Musculoskeletal: No Endocrine: No HEENT: No Cancer: No Psychosocial: No Integumentary: No Blood Disorders: No Physical Exam Vital Signs Vital Signs - First Documented 12/31/21 12/31/21 10:55 11:35 Temp 36.8 Pulse 87 Resp 20 B/P (MAP) 134/89 (104) Pulse Ox 100 O2 Delivery Room Air Capillary Refill : Height, Weight, BMI Height: '" Weight: lbs. oz. kg; 40.16 BMI Method: General Appearance: moderate distress HEENT: PERRL/EOMI Cardiovascular: normal peripheral pulses Rectal: normal rectal tone, hemorrhoids (Small external hemorrhoids and a larger internal hemorrhoid that appeared to be prolapsed. With using lubricant and gentle pressure this was easily reduced. Pain immediately was improved.) Extremities: normal range of motion, non-tender, normal capillary refill Neurologic/Psychiatric: alert, oriented x 3 Skin: warm/dry Progress/Results/Core Measures Suspected Sepsis SIRS Temperature: Pulse: Respiratory Rate: Blood Pressure / Mean: Results/Orders Vital Signs/I&O 12/31/21 12/31/21 10:55 11:35 Temp 36.8 36.7 Pulse 87 78 Resp 20 17 B/P (MAP) 134/89 (104) 127/66 Pulse Ox 100 O2 Delivery Room Air Room Air Capillary Refill : Progress Note : Progress Note Prolapsed internal hemorrhoid was easily reduced on digital rectal exam during physical exam. She had immediate improvement in her pain. Counseled on high- fiber diet and increase fluids to help keep stools soft and regular. Consider MiraLAX to help keep stools soft and regular. Follow-up with her high school counselor and she may need to have surgery to have her hemorrhoids removed if they continue to give her problems. Departure Impression Primary Impression: Prolapsed internal hemorrhoids requiring manual reduction Additional Impression: Incidental Disposition: 01 HOME, SELF-CARE Condition: Improved Departure-Patient Inst. Decision time for Depature: 11:27 Referrals: MIRELLA UNGER DO (PCP) Primary Care Physician Patient Instructions: Hemorrhoids ED, High Fiber Diet Add. Discharge Instructions: Stay well-hydrated and drink plenty of water and electrolyte drinks. Try to follow a high-fiber diet to help keep your stools soft and regular. Consider MiraLAX or a laxative if needed to keep your stools soft and regular. Follow-up with your security guards dispatcher about the hemorrhoids and if they continue to be a problem you may even need to consider having surgery to have the hemorrhoids removed. It would be safe to use acetaminophen or Tylenol up to 1000 mg 3-4 times a day if needed for pain. You could use kegv-[id number] Preparation H or witch toni products to help with hemorrhoids and rectal pain. All discharge instructions reviewed with patient and/or family. Voiced understanding. JEAN PIERRE RODRIGUEZ MD Dec 31, 2021 11:29
[2021-12-31 11:35] VITALS: BP 127/66
== END 2021-12-31 11:35 | disposition home or self-care (01) ==
LOC: EDUNIT# 10:50 → ER FS 10:51
DX: O22.42 Hemorrhoids in pregnancy, second trimester (principal); Z3A.15 15 weeks gestation of pregnancy; Z28.310 Unvaccinated for COVID-19
CPT/HCPCS: 99284

== ENCOUNTER → 2022-02-03 | Outpatient (CLI) | payer BC ==
--- NOTE | 2022-02-03 16:27 | Diagnostic Imaging Report ---
INDICATION: Anatomic survey, patient. TECHNIQUE: Multiple real-time grayscale images were obtained over the gravid uterus. COMPARISON: None during this . FINDINGS: Single live intrauterine fetus is seen measuring 19 weeks 2 days by composite measurements with sonographic EDC of 06/28/2022. The fetus is in variable presentation. Placenta was posterior and fundal with no evidence of previa. The distance from the placental tip to the internal os was 6.6 cm. Cervical length is 6.9 cm. The amniotic Fluid index was 16.39 cm. heart rate is 142 BPM. There is no evidence of abruption. Maternal adnexa show no free fluid. survey showed normal-appearing kidneys and bladder. Normal-appearing stomach was seen. Intracranial ventricles were normal. Four-chamber heart view appeared normal. The views of the spine appeared normal. Three-vessel cord and cord insertion were unremarkable. Biometrical measurements are as follows: Biparietal 4.38 cm, age 19 weeks 2 days. Head circumference 16.47 cm, age 19 weeks 2 days. Abdominal circumference 14.34 cm, age 19 weeks 5 days. Femur length 2.78 cm, age 18 weeks 4 days. Sonographic estimate age: 19 weeks 2 days. Sonographic estimated date of delivery: 06/28/2022. Estimated Weight: 276 gm (+/- 41 gm). LMP percentile: 17%. heart rate: 142 beats per minute. number: 1 of 1. IMPRESSION: Single live intrauterine fetus measuring 19 weeks 2 days in size. There were no detectable sonographic abnormalities. Dictated by: Dictated on workstation # [id number]
== END ==
LOC: RAD 14:53
PROVIDERS: ATTEND Nurse Practitioner Women's Health
DX: Z34.02 Encounter for supervision of normal first pregnancy, second trimester (principal); Z3A.19 19 weeks gestation of pregnancy
CPT/HCPCS: 76805

== ENCOUNTER 2022-06-24 06:21 | Inpatient (IN) | payer BC ==
[~2022-06-24] VITALS: Ht 162.6 cm; Wt 99.7 kg
[2022-06-24] VITALS (56 sets, daily range): BP systolic 98–145; BP diastolic 50–83
[2022-06-24 08:02] LABS: BASOPHILS % (AUTO) 0 % (0-10); EOSINOPHILS % (AUTO) 0 % (0-10); HEMATOCRIT 30 % (35-52); HEMOGLOBIN 9.9 g/dL (11.5-16.0); LYMPHOCYTES # (AUTO) 0.6 10^3/uL (1.0-4.0); LYMPHOCYTES % (AUTO) 7 % (12-44); MEAN CORPUSCULAR HEMOGLOBIN 29 pg (25-34); MEAN CORPUSCULAR HGB CONC 33 g/dL (32-36); MEAN CORPUSCULAR VOLUME 86 fL (80-99); MONOCYTES # (AUTO) 0.6 10^3/uL (0.0-1.0); MONOCYTES % (AUTO) 7 % (0-12); NEUTROPHILS # (AUTO) 6.8 10^3/uL (1.8-7.8); NEUTROPHILS % (AUTO) 85 % (42-75); PLATELET COUNT 161 10^3/uL (130-400)
[2022-06-24] MEDS: D5 LR IV SOLUTION 1,000 ML IV SCH ×2 (08:17→16:20)
[2022-06-24 08:46] LABS: BAND NEUTROPHILS 2 %; BASOPHILS % (MANUAL) 0 %; EOSINOPHILS % (MANUAL) 1 %; LYMPHOCYTES % (MANUAL) 10 %; MONOCYTES % (MANUAL) 3 %; NEUTROPHILS % (MANUAL) 84 %; RBC MORPH NORMAL
--- NOTE | 2022-06-24 08:55 | History & Physical-OB ---
OB - Chief Complaint & HPI Date/Time Date of Admission: Date of Admission: Jun 24, 2022 at 06:21 Date seen by a Provider: Jun 24, 2022 Time Seen by a Provider: 08:15 Chief Complaint/History OB-Reason for Admission/Chief: Induction of Labor Hx : 2 Hx Para: 1 Expected Date of Delivery: Jun 25, 2022 Gestational Age in Weeks: 39 Gestational Age in Days: 6 Admission Nurse Assessment Rev: Yes History of Labs see prenatals GBS neg Allergies and Home Medications Allergies Coded Allergies: No Known Drug Allergies (Unverified , 02/07/20) Patient Home Medication List Home Medication List Reviewed: Yes Amlodipine Besylate (Norvasc) 2.5 Mg Tablet, 2.5 MG PO DAILY Prescribed by: MIRELLA UNGER on 09/16/20 1227 Benzocaine/Menthol (Dermoplast Pain Relieving [place]) 78 Gm Aerosol, 0 EA TP UD PRN for PAIN- SEE INSTRUCTIONS Prescribed by: MIRELLA UNGER on 09/16/20 1226 Docusate Sodium (Dok) 100 Mg Capsule, 100 MG PO BID PRN for CONSTIPATION-1ST LINE Prescribed by: MIRELLA UNGER on 09/16/20 1226 Ferrous Sulfate (Iron) 325 Mg Tablet, 325 MG PO, (Reported) Entered as Reported by: TAMIE HENSON on 09/13/201946 Hydrocodone Bit/Acetaminophen (HYDROcodone/APAP 5 MG/325 MG TAB) 1 Tab Tab, 1 EA PO Q4H PRN for PAIN-MODERATE (5-7) Prescribed by: MIRELLA UNGER on 09/16/20 1226 Ibuprofen (Ibu) 600 Mg Tablet, 600 MG PO Q6H Prescribed by: MIRELLA UNGER on 09/16/20 1226 Vit #76/Iron,Carb/FA (Prenatabs Rx Tablet) 1 Each Tablet, 1 EACH PO, (Reported) Entered as Reported by: TAMIE HENSON on 09/13/201945 OB - History Hx of Present Care: Yes Ultrasounds: Normal mid trimester US Obstetrical Complications: None Medical Complications: None Patient Past Medical History n/a Social History/Family History 2nd Hand Smoke Exposure: No OB - Admission Exam Physical Exam HEENT: NCAT Heart: Rhythm Normal Lungs: Clear Abdomen: Gravid Extremities: Normal Reflexes: Normal Cervical Dilatation: 3cm Effacement: 75% Station: -1 Membranes: Intact Heart Rate: 130's Accelerations: Accelerations Present Decelerations: No Decelerations Short Term Variability: Present Hr Business Partner Variability: Average (6-25) Contractions on Admission: 6-10 Minutes Apart Intensity: Mild P[place]ta Scoring Tool (Modified) Dilation (cm): 3-4cm (2) Effacement (%): 51-79% (2) Descent/Station: -1,0 (2) Cervix Consistency: Soft (2) Cervix Position: Anterior (2) Peralta Score: 11 Labs Laboratory Tests Test 06/24/22 07:40 Range/Units White Blood Count 8.0 4.3-11.0 10^3/uL Red Blood Count 3.47 L 3.80-5.11 10^6/uL Hemoglobin 9.9 L 11.5-16.0 g/dL Hematocrit 30 L 35-52 % Mean Corpuscular Volume 86 80-99 fL Mean Corpuscular Hemoglobin 29 25-34 pg Mean Corpuscular Hemoglobin Concent 33 32-36 g/dL Red Cell Distribution Width 13.3 10.0-14.5 % Platelet Count 161 130-400 10^3/uL Mean Platelet Volume 11.0 9.0-12.2 fL Immature Granulocyte % (Auto) 1 % Neutrophils (%) (Auto) 85 H 42-75 % Lymphocytes (%) (Auto) 7 L 12-44 % Monocytes (%) (Auto) 7 0-12 % Eosinophils (%) (Auto) 0 0-10 % Basophils (%) (Auto) 0 0-10 % Neutrophils # (Auto) 6.8 1.8-7.8 10^3/uL Lymphocytes # (Auto) 0.6 L 1.0-4.0 10^3/uL Monocytes # (Auto) 0.6 0.0-1.0 10^3/uL Eosinophils # (Auto) 0.0 0.0-0.3 10^3/uL Basophils # (Auto) 0.0 0.0-0.1 10^3/uL Immature Granulocyte # (Auto) 0.0 0.0-0.1 10^3/uL Neutrophils % (Manual) 84 % Lymphocytes % (Manual) 10 % Monocytes % (Manual) 3 % Eosinophils % (Manual) 1 % Basophils % (Manual) 0 % Band Neutrophils 2 % Blood Morphology Comment NORMAL OB - Assessment/Plan/Diagnosis Assessment Assessment: induction of labor Admission Dx 27 yo @ 39.6 IOL labor GBS neg Admission Status: Inpatient Order (span 2 midnights) Reason for Inpatient Admission: 27 yo @ 39.6 IOL labor Plan Plan: Induction Induction Method: MIRELLA MIX DO Jun 24, 2022 08:55
[2022-06-24] MEDS ORDERED: OXYTOCIN PRE-MIX DRIP 500 ML IV ONE (09:40)
[2022-06-24] MEDS ORDERED: OXYTOCIN PRE-MIX DRIP 500 ML IV SCH (09:45)
[2022-06-24] MEDS ORDERED: LACTATED RINGERS 1,000 ML IV ONE ×2 (13:57→14:00)
[2022-06-24] MEDS ORDERED: fentaNYL 2 mcg/ml BUPIVA 0.125 100 ML ONE (13:57)
[2022-06-24] MEDS ORDERED: CATHETER FLUSH 10 ML SYR IV PRN (14:00)
[2022-06-24] MEDS ORDERED: NALOXONE 0.4 MG/ML 1 ML (NARCAN) VIAL IV PRN ×2 (14:00→20:00)
[2022-06-24] MEDS ORDERED: fentaNYL 2 mcg/ml BUPIVA 0.125 100 ML IV SCH (14:00)
[2022-06-24] MEDS ORDERED: ONDANSETRON 4 MG/2 ML (SDV) Z0FRAN IV PRN (14:00)
[2022-06-24] MEDS ORDERED: CATHETER FLUSH 10 ML SYR IV SCH ×2 (14:00→22:00)
[2022-06-24] MEDS ORDERED: diphenhydrAMINE 50 MG/ML INJ (BENADRYL) IV PRN (14:00)
[2022-06-24] MEDS ORDERED: fentaNYL INJ 100 MCG/2 ML AMP ONE (14:03)
[2022-06-24] MEDS ORDERED: LIDOCAINE PF 2% 5 ML (XYLOCAINE) VIAL ONE (14:04)
[2022-06-24] MEDS: OXYTOCIN PRE-MIX DRIP 500 ML IV SCH ×2 (19:41→20:12)
[2022-06-24] MEDS ORDERED: DIBUCAINE 1% OINTMENT 28 GM TUBE TOP PRN (20:00)
[2022-06-24] MEDS ORDERED: TETANUS,DIPTH,PERTUSS P/F (BOOSTRIX) 0.5 ML VIAL IM ONE (20:00)
[2022-06-24] MEDS ORDERED: WITCH HAZEL(TUCKS) 40 EA JAR TOP PRN (20:00)
[2022-06-24] MEDS ORDERED: BENZOCAINE/MENTHOL (DERMOPLAST) 56 ML CAN TP PRN (20:00)
[2022-06-24] MEDS ORDERED: MEASLES,MUMPS,RUBELLA 1 EA INJ SQ ONE (20:00)
--- NOTE | 2022-06-24 20:02 | OB Labor & Delivery Record ---
L&D History Date of Service Date of Service: Jun 24, 2022 History Expected Date of Delivery: Jun 25, 2022 Gestational Age in Weeks: 39 Hx : 2 Hx Para: 1 Complications Events: Routine care Operative Indications (Cesarea: N/A-Vaginal Delivery Intrapartal Events: None L&D Stage1 Stage One Onset of Labor - Date: Jun 24, 2022 Monitors and Tracing Monitor Mode: External Heart Rate: 160 Monitor Accelerations: Uniform Monitor Decelerations: None Station: 0 Stitcher Set Up Operator Automatic Variability: Average (6-10) Short Term Variability: Present Presentation: Vertex Vital Signs VS - Last 72 Hours, by Label 06/24/22 06/24/22 06/24/22 06/24/22 07:24 09:50 10:05 10:21 Temp 37.0 Pulse 115 94 97 90 Resp 18 18 18 18 B/P (MAP) 119/66 (83) 109/57 (74) 113/63 (80) Pulse Ox 98 O2 Delivery Room Air Room Air Room Air Room Air 06/24/22 06/24/22 06/24/22 06/24/22 10:35 10:52 11:00 11:07 Temp 37.4 Pulse 83 83 98 Resp 18 18 18 B/P (MAP) 107/60 (76) 109/63 (78) 123/62 (82) O2 Delivery Room Air Room Air Room Air 06/24/22 06/24/22 06/24/22 06/24/22 11:20 11:35 11:52 12:06 Pulse 91 101 99 99 Resp 18 18 18 18 B/P (MAP) 103/59 (74) 102/61 (75) 104/55 (71) 125/72 (89) O2 Delivery Room Air Room Air Room Air Room Air 06/24/22 06/24/22 06/24/22 06/24/22 12:10 12:22 12:36 12:51 Temp 37.0 Pulse 82 80 80 Resp 18 18 18 B/P (MAP) 111/64 (80) 112/59 (76) 108/63 (78) O2 Delivery Room Air Room Air Room Air 06/24/22 06/24/22 06/24/22 06/24/22 13:01 13:06 13:20 13:37 Temp 37.0 Pulse 93 86 85 Resp 18 18 18 B/P (MAP) 110/60 (77) 104/58 (73) 114/58 (76) O2 Delivery Room Air Room Air Room Air 06/24/22 06/24/22 06/24/22 06/24/22 13:52 14:08 14:13 14:16 Pulse 99 102 93 97 Resp 18 18 18 18 B/P (MAP) 122/55 (77) 125/80 (95) 127/66 (86) 131/61 (84) Pulse Ox 100 100 100 O2 Delivery Room Air Room Air Room Air Room Air 06/24/22 06/24/22 06/24/22 06/24/22 14:19 14:21 14:24 14:28 Pulse 106 95 86 Resp 18 18 18 18 B/P (MAP) 121/60 (80) 115/59 (77) 120/71 (87) 119/67 (84) Pulse Ox 100 100 98 O2 Delivery Room Air Room Air Room Air Room Air 06/24/22 06/24/22 06/24/22 06/24/22 14:31 14:34 14:37 14:40 Pulse 101 91 127 104 Resp 18 18 18 18 B/P (MAP) 119/66 (83) 122/70 (87) 98/53 (68) 124/72 (89) Pulse Ox 97 98 100 O2 Delivery Room Air Room Air Room Air Room Air 06/24/22 06/24/22 06/24/22 06/24/22 14:46 14:52 14:55 15:01 Pulse 89 103 85 84 Resp 18 18 18 18 B/P (MAP) 111/60 (77) 98/50 (66) 114/64 (81) 118/67 (84) Pulse Ox 98 O2 Delivery Room Air Room Air Room Air Room Air 06/24/22 06/24/22 06/24/22 06/24/22 15:09 15:22 15:40 15:56 Pulse 111 102 93 88 Resp 18 18 18 18 B/P (MAP) 101/62 (75) 119/66 (83) 115/65 (82) 110/63 (79) Pulse Ox 98 100 98 O2 Delivery Room Air Room Air Room Air Room Air 06/24/22 06/24/22 06/24/22 06/24/22 16:12 16:25 16:40 16:55 Pulse 80 88 100 91 Resp 18 18 18 18 B/P (MAP) 117/61 (79) 109/63 (78) 107/59 (75) 107/58 (74) Pulse Ox 99 98 96 96 O2 Delivery Room Air Room Air Room Air Room Air 06/24/22 06/24/22 06/24/22 06/24/22 17:10 17:25 17:40 17:56 Pulse 99 91 100 109 Resp 18 18 18 18 B/P (MAP) 116/65 (82) 126/76 (93) 127/74 (91) 124/79 (94) Pulse Ox 100 100 100 O2 Delivery Room Air Room Air Room Air Room Air 06/24/22 06/24/22 06/24/22 06/24/22 18:10 18:26 18:32 18:40 Temp 36.9 Pulse 107 106 104 Resp 18 18 18 B/P (MAP) 133/75 (94) 129/72 (91) 113/65 (81) Pulse Ox 100 100 100 O2 Delivery Room Air Room Air Room Air 06/24/22 06/24/22 18:55 19:08 Temp 37.7 Pulse 103 Resp 18 B/P (MAP) 113/58 (76) Pulse Ox 100 O2 Delivery Room Air Rupture of Membranes Spontaneous Ruture of Membrane: No Amniotic Membrane Rupture Time: 08 Amniotic Membrane Fluid Desc.: Clear Vaginal Bleeding Description: Normal Show Induction/Anesthesia Epidural Cath Placement - Time: 141 Progress/Notes Patient admitted for IOL at 39 weeks. AROM performed followed by pitocin augmentation to max dose of 8 mu. Epidural placed. She progressed to complete and + 1 station. L&D Stage2 Stage Two Stage II Date: Jun 24, 2022 Monitors and Tracing Monitor Mode: External Heart Rate: 160 Monitor Accelerations: Uniform Monitor Decelerations: Variable Stitcher Set Up Operator Automatic Variability: Average (6-10) Short Term Variability: Present Position: Right Occiput Anterior Presentation: Vertex Cord Descript/Complications Cord Vessel Description: 3 Vessels Complications nuchal cord x 1 Delivery Type Delivery Method: Spontaneous Vaginal Anterior Shoulder: Right Episiotomy/Perineal Laceration Laceraction(s)/Extensions: Yes Episiotomy Description: Perineal Extension/lac, 2nd degree Degree (describe repair) 2nd degree perineal laceration repaired using 3-0 rapide and 2-0 vicryl suture Condition of Delivery 1 minute Comment: 9 5 minute Comment: 9 Notes Live female infant weight 7lbs 7oz Condition of Infant Condition of Infant: Living Exam: No Observed Abnormalities Resuscitation Resuscitation: N/A - Spontaneous Resp L&D Stage3 Stage Three Stage III Date: Jun 24, 2022 Pictocin Pitocin Administration mu/min: 8 Pitocin ml/hr: 8 Pitocin Administration Comment: 30 mu wide open after delivery of placenta Placenta Delivery Placenta Delivery: Spontaneous Delivery Summary Summary Estimated blood loss (mL): 300 Attending at delivery: Mirella Unger DO Condition of Delivery Examined: Cervix Examined, Uterus Explored Post Hemorrhage: No Condition of Mother stable Condition of (s) stable MIRELLA UNGER DO Jun 24, 2022 20:02
--- NOTE | 2022-06-24 20:03 | Discharge Inst-Women's Service ---
Discharge Inst-Women's Serv Depart Medication/Instructions New, Converted or Re-Newed RX: Transmitted to Pharmacy Final Diagnosis PPD 1 NVD Problems Reviewed?: Yes Consults/Follow Up Additional Follow Up: Yes Orders/Referrals Dr. Unger in 6 weeks Activity Activity: Activity as Tolerated Driving Instructions: No Driving for 1 Week Nothing Inside Vagina: No Douching, No [place], No Tampons Diet Discharge Diet: No Restrictions Symptoms to Report to : Bleeding Excessive, Pain Increased, Fever Over 101 Degrees F, Vaginal Bleeding Increase, Questions/Concerns For Any Problems or Questions: Contact Your Physician MIRELLA UNGER DO Jun 24, 2022 20:03
[2022-06-24] MEDS ORDERED: DOCU100C37 PO (20:04)
[2022-06-24] MEDS ORDERED: FERR325T24 PO (20:04)
[2022-06-24] MEDS ORDERED: IBUP-844 PO (20:04)
[2022-06-24] MEDS ORDERED: ACET-93 PO (20:04)
[2022-06-24] MEDS ORDERED: BENZ78AE5 TP (20:04)
[2022-06-24] MEDS ORDERED: ACETAMINOPHEN 500 MG TAB (TYLENOL) ONE (21:24)
[2022-06-24] MEDS ORDERED: BENZOCAINE/MENTHOL (DERMOPLAST) 56 ML CAN TP ONE (21:24)
[2022-06-24] MEDS ORDERED: IBUPROFEN 600 MG (MOTRIN) TAB PO ONE (21:24)
[2022-06-24] MEDS: IBUPROFEN 600 MG (MOTRIN) TAB PO SCH (21:33)
[2022-06-24] MEDS: ACETAMINOPHEN 500 MG TAB (TYLENOL) PO SCH (21:33)
[2022-06-24] MEDS: DOCUSATE SODIUM 100 MG (COLACE) CAP PO SCH (22:29)
[2022-06-25] VITALS (7 sets, daily range): BP systolic 106–147; BP diastolic 59–79
[2022-06-25] MEDS: IBUPROFEN 600 MG (MOTRIN) TAB PO SCH ×4 (04:32→23:15)
[2022-06-25] MEDS: ACETAMINOPHEN 500 MG TAB (TYLENOL) PO SCH ×2 (04:32→20:40)
[2022-06-25 05:39] LABS: BASOPHILS % (AUTO) 0 % (0-10); EOSINOPHILS # (AUTO) 0.1 10^3/uL (0.0-0.3); EOSINOPHILS % (AUTO) 1 % (0-10); HEMATOCRIT 28 % (35-52); HEMOGLOBIN 9.1 g/dL (11.5-16.0); LYMPHOCYTES # (AUTO) 1.5 10^3/uL (1.0-4.0); LYMPHOCYTES % (AUTO) 16 % (12-44); MEAN CORPUSCULAR HEMOGLOBIN 28 pg (25-34); MEAN CORPUSCULAR HGB CONC 32 g/dL (32-36); MEAN CORPUSCULAR VOLUME 88 fL (80-99); MONOCYTES % (AUTO) 11 % (0-12); NEUTROPHILS # (AUTO) 6.6 10^3/uL (1.8-7.8); NEUTROPHILS % (AUTO) 72 % (42-75); PLATELET COUNT 172 10^3/uL (130-400); WHITE BLOOD COUNT 9.2 10^3/uL (4.3-11.0)
[2022-06-25] MEDS ORDERED: PRENATAL VITAMIN 1 EA TAB PO SCH (07:00)
--- NOTE | 2022-06-25 07:37 | Postpartum Progress Note ---
Note Note Day # 1 Subjective: Patient is without complaints. Ambulating, voiding. Tolerating a regular diet without nausea or vomiting. Normal lochia. Pain is well controlled with oral pain medications. Objective: Physical Exam: General - Alert and oriented, no apparent distress Abdomen - Soft, appropriately tender to palpation, non-distended, fundus firm at umbilicus Extremities - no edema, negative Bennett's bilaterally Assessment: PPD 1 NVD Acute blood loss anemia Plan: Routine care. Encourage breast feeding. Encourage ambulation. Ferrous sulfate supplementation. Plan for discharge today Vitals - Labs Vital Signs - I&O Vital Signs Date Time Temp Pulse Resp B/P (MAP) Pulse Ox O2 Delivery O2 Flow Rate FiO2 06/25/22 04:43 36.2 76 18 117/79 (92) 99 06/25/22 00:57 36.2 104 20 121/65 (83) 97 06/24/22 21:38 109 117/71 (86) 06/24/22 21:07 108 121/62 (81) 06/24/22 20:25 109 123/60 (81) 06/24/22 20:20 37.4 06/24/22 20:10 112 126/58 (80) 06/24/22 19:55 113 129/66 (87) 06/24/22 19:40 115 129/61 (83) 06/24/22 19:12 124 145/83 (103) 100 Room Air 06/24/22 19:08 37.7 06/24/22 18:55 103 18 113/58 (76) 100 Room Air 06/24/22 18:40 104 18 113/65 (81) 100 Room Air 06/24/22 18:32 36.9 06/24/22 18:26 106 18 129/72 (91) 100 Room Air 06/24/22 18:10 107 18 133/75 (94) 100 Room Air 06/24/22 17:56 109 18 124/79 (94) 100 Room Air 06/24/22 17:40 100 18 127/74 (91) 100 Room Air 06/24/22 17:25 91 18 126/76 (93) Room Air 06/24/22 17:10 99 18 116/65 (82) 100 Room Air 06/24/22 16:55 91 18 107/58 (74) 96 Room Air 06/24/22 16:40 100 18 107/59 (75) 96 Room Air 06/24/22 16:25 88 18 109/63 (78) 98 Room Air 06/24/22 16:12 80 18 117/61 (79) 99 Room Air 06/24/22 15:56 88 18 110/63 (79) 98 Room Air 06/24/22 15:40 93 18 115/65 (82) 100 Room Air 06/24/22 15:22 102 18 119/66 (83) Room Air 06/24/22 15:09 111 18 101/62 (75) 98 Room Air 06/24/22 15:01 84 18 118/67 (84) Room Air 06/24/22 14:55 85 18 114/64 (81) 98 Room Air 06/24/22 14:52 103 18 98/50 (66) Room Air 06/24/22 14:46 89 18 111/60 (77) Room Air 06/24/22 14:40 104 18 124/72 (89) 100 Room Air 06/24/22 14:37 127 18 98/53 (68) 98 Room Air 06/24/22 14:34 91 18 122/70 (87) 97 Room Air 06/24/22 14:31 101 18 119/66 (83) Room Air 06/24/22 14:28 86 18 119/67 (84) 98 Room Air 06/24/22 14:24 95 18 120/71 (87) 100 Room Air 06/24/22 14:21 18 115/59 (77) Room Air 06/24/22 14:19 106 18 121/60 (80) 100 Room Air 06/24/22 14:16 97 18 131/61 (84) 100 Room Air 06/24/22 14:13 93 18 127/66 (86) 100 Room Air 06/24/22 14:08 102 18 125/80 (95) 100 Room Air 06/24/22 13:52 99 18 122/55 (77) Room Air 06/24/22 13:37 85 18 114/58 (76) Room Air 06/24/22 13:20 86 18 104/58 (73) Room Air 06/24/22 13:06 93 18 110/60 (77) Room Air 06/24/22 13:01 37.0 06/24/22 12:51 80 18 108/63 (78) Room Air 06/24/22 12:36 80 18 112/59 (76) Room Air 06/24/22 12:22 82 18 111/64 (80) Room Air 06/24/22 12:10 37.0 06/24/22 12:06 99 18 125/72 (89) Room Air 06/24/22 11:52 99 18 104/55 (71) Room Air 06/24/22 11:35 101 18 102/61 (75) Room Air 06/24/22 11:20 91 18 103/59 (74) Room Air 06/24/22 11:07 98 18 123/62 (82) Room Air 06/24/22 11:00 37.4 06/24/22 10:52 83 18 109/63 (78) Room Air 06/24/22 10:35 83 18 107/60 (76) Room Air 06/24/22 10:21 90 18 113/63 (80) Room Air 06/24/22 10:05 97 18 109/57 (74) Room Air 06/24/22 09:50 94 18 119/66 (83) Room Air l I & O 06/25/22 07:00 Intake Total 3870 ml Output Total 900 ml Balance 2970 ml Labs Laboratory Tests 06/24/22 07:40: White Blood Count 8.0, Red Blood Count 3.47L, Hemoglobin 9.9L, Hematocrit 30L, Mean Corpuscular Volume 86, Mean Corpuscular Hemoglobin 29, Mean Corpuscular Hemoglobin Concent 33, Red Cell Distribution Width 13.3, Platelet Count 161, Mean Platelet Volume 11.0, Immature Granulocyte % (Auto) 1, Neutrophils (%) (Auto) 85H, Lymphocytes (%) (Auto) 7L, Monocytes (%) (Auto) 7, Eosinophils (%) (Auto) 0, Basophils (%) (Auto) 0, Neutrophils # (Auto) 6.8, Lymphocytes # (Auto) 0.6L, Monocytes # (Auto) 0.6, Eosinophils # (Auto) 0.0, Basophils # (Auto) 0.0, Immature Granulocyte # (Auto) 0.0, Neutrophils % (Manual) 84, Lymphocytes % (Manual) 10, Monocytes % (Manual) 3, Eosinophils % (Manual) 1, Basophils % (Manual) 0, Band Neutrophils 2, Blood Morphology Comment NORMAL, Syphilis Serology Non-Reactive 06/25/22 05:12: White Blood Count 9.2, Red Blood Count 3.22L, Hemoglobin 9.1L, Hematocrit 28L, Mean Corpuscular Volume 88, Mean Corpuscular Hemoglobin 28, Mean Corpuscular Hemoglobin Concent 32, Red Cell Distribution Width 13.3, Platelet Count 172, Mean Platelet Volume 11.0, Immature Granulocyte % (Auto) 1, Neutrophils (%) (Auto) 72, Lymphocytes (%) (Auto) 16, Monocytes (%) (Auto) 11, Eosinophils (%) (Auto) 1, Basophils (%) (Auto) 0, Neutrophils # (Auto) 6.6, Lymphocytes # (Auto) 1.5, Monocytes # (Auto) 1.0, Eosinophils # (Auto) 0.1, Basophils # (Auto) 0.0, Immature Granulocyte # (Auto) 0.1 MIRELLA UNGER DO Jun 25, 2022 07:37
[2022-06-25] MEDS ORDERED: FERROUS SULF 325 MG (IRON) TAB PO SCH (09:00)
--- NOTE | 2022-06-25 10:22 | Anesthesia-Regional Post-Op ---
Regional Patient Condition Mental Status: Alert, Oriented x3 Circulation: Same as Pre-Op Headache: Absent Sensation: Full Recovery Motor Block: Absent Post Op Complications Complications None Follow Up Care/Instructions Patient Instructions None needed. Anesthesia/Patient Condition Patient is doing well, no complaints, stable vital signs, no apparent adverse anesthesia problems. No complications reported per nursing. BEL SIDDIQUI CRNA Jun 25, 2022 10:22
[2022-06-25] MEDS: DOCUSATE SODIUM 100 MG (COLACE) CAP PO SCH ×2 (10:32→20:40)
== END 2022-06-25 23:18 | disposition home or self-care (01) | DRG 806 ==
LOC: LDRP 06:21
PROVIDERS: ADMIT Obstetrics & Gynecology; ATTEND Obstetrics & Gynecology
PROC: 10E0XZZ Delivery of Products of Conception, External Approach (ICD-10-PCS; principal; 2022-06-24)
PROC: 0KQM0ZZ Repair Perineum Muscle, Open Approach (ICD-10-PCS; 2022-06-24)
PROC: 10907ZC Drainage of Amniotic Fluid, Therapeutic from Products of Conception, Via Natural or Artificial Opening (ICD-10-PCS; 2022-06-24)
DX: O70.1 Second degree perineal laceration during delivery (principal); D62 Acute posthemorrhagic anemia; Z37.0 Single live birth; Z3A.39 39 weeks gestation of pregnancy; O90.81 Anemia of the puerperium
CPT/HCPCS: 36415; 85007; 85025; 85027; 86780; 86850; 86900; 86901